=== PATIENT | female | born 1970 | race Caucasian/White ===

== ENCOUNTER 2025-02-11 21:54 | Emergency (ER) | payer OTHER ==
[~2025-02-11] VITALS: Ht 167.6 cm; Wt 71.2 kg
== END 2025-02-11 23:03 | disposition home or self-care (01) ==
LOC: ED 21:54
DX: H66.93 Otitis media, unspecified, bilateral (principal); J02.9 Acute pharyngitis, unspecified; R06.02 Shortness of breath; Z88.1 Allergy status to other antibiotic agents; Z88.8 Allergy status to other drugs, medicaments and biological substances